=== PATIENT | female | born 1960 | race African-American/Black ===

== ENCOUNTER 2020-07-27 17:41 | Emergency (ER) | payer MEDICAID ==
[~2020-07-27] VITALS: Ht 172.7 cm; Wt 82.0 kg
[2020-07-27 19:14] LABS: BASOPHILS % 0.7 % (0.0-2.0); EOSINOPHILS % 1.8 % (0.0-5.0); HEMATOCRIT. 38.4 % (36.0-48.0); HEMOGLOBIN. 13.6 g/dL (12.0-16.0); LYMPHOCYTES % 39.4 % (20.0-50.0); MEAN CORPUSCULAR HEMOGLOBIN 29.9 pg (28.0-32.0); MEAN CORPUSCULAR VOLUME 84.6 fL (81.0-99.0); MEAN PLATELET VOLUME 7.8 fl (7.4-10.4); MONOCYTES % 8.4 % (2.0-8.0); NEUTROPHILS % 49.7 % (40.0-76.0); PLATELET 301 x1000/uL (130-400); RED BLOOD CELL COUNT 4.54 mill/uL (4.2-5.4); RED CELL DISTRIBUTION WIDTH 13.7 % (11.6-14.6)
[2020-07-27 19:16] LABS: CHLORIDE 108 mEq/L (98-107)
[2020-07-27 19:18] LABS: PROTHROMBIN TIME 11.2 sec (9.6-11.0)
[2020-07-27 22:00] VITALS: BP 110/68
== END 2020-07-28 01:00 | disposition home or self-care (01) ==
LOC: ER 17:41
DX: R06.00 Dyspnea, unspecified (principal); I69.351 Hemiplegia and hemiparesis following cerebral infarction affecting right dominant side; I69.322 Dysarthria following cerebral infarction; Y08.89XA Assault by other specified means, initial encounter; Y07.59 Other non-family member, perpetrator of maltreatment and neglect; F03.90 Unspecified dementia, unspecified severity, without behavioral disturbance, psychotic disturbance, mood disturbance, and anxiety; I50.9 Heart failure, unspecified; Y93.89 Activity, other specified; Y92.238 Other place in hospital as the place of occurrence of the external cause; Z99.81 Dependence on supplemental oxygen
CPT/HCPCS: 36415; 71045; 80053; 83605; 83880; 84484; 85025; 85610; 93005; 99285; Z7610

== ENCOUNTER 2021-07-25 13:56 | Emergency (ER) | payer MEDICAID ==
[~2021-07-25] VITALS: Ht 170.2 cm; Wt 59.0 kg
[2021-07-25] MEDS ORDERED: DIATR MEGLU/DIATRIZOATE SOLN 30ML ONE (16:03)
[2021-07-25 20:51] VITALS: BP 101/53
== END 2021-07-25 20:57 ==
LOC: ER 14:04
DX: Z43.1 Encounter for attention to gastrostomy (principal); R00.0 Tachycardia, unspecified; I11.0 Hypertensive heart disease with heart failure; I50.9 Heart failure, unspecified; I69.320 Aphasia following cerebral infarction; I69.398 Other sequelae of cerebral infarction; Z74.01 Bed confinement status
CPT/HCPCS: 43762; 74018; 99285; Z7610; Q9963

== ENCOUNTER 2021-07-30 20:11 | Inpatient (IN) | payer MEDICAID ==
[~2021-07-30] VITALS: Ht 170.2 cm; Wt 57.2 kg
[2021-07-30 20:55] LABS: EOSINOPHILS % 0.4 % (0.0-5.0); LYMPHOCYTES % 11.5 % (20.0-50.0); MEAN CORPUSCULAR HEMOGLOBIN 22.5 pg (28.0-32.0); MEAN CORPUSCULAR VOLUME 74.8 fL (81.0-99.0); MEAN PLATELET VOLUME 5.9 fl (7.4-10.4); MONOCYTES % 5.5 % (2.0-8.0); NEUTROPHILS % 82.6 % (40.0-76.0); PLATELET 477 x1000/uL (130-400); RED BLOOD CELL COUNT 3.05 mill/uL (4.2-5.4); RED CELL DISTRIBUTION WIDTH 18.8 % (11.6-14.6)
[2021-07-30 20:57] LABS: CHLORIDE 99 mEq/L (98-107)
[2021-07-30 20:59] LABS: INR 1.1; PROTHROMBIN TIME 11.4 sec (9.6-11.0)
[2021-07-30 21:00] LABS: HEMOGLOBIN. 6.9 g/dL (12.0-16.0)
[2021-07-30 21:01] LABS: HEMATOCRIT. 22.8 % (36.0-48.0)
[2021-07-30] MEDS ORDERED: DIATR MEGLU/DIATRIZOATE SOLN 30ML ONE (21:41)
[2021-07-30 23:32] LABS: HEMATOCRIT. 24.2 % (36.0-48.0); HEMOGLOBIN. 7.5 g/dL (12.0-16.0); MEAN CORPUSCULAR HEMOGLOBIN 22.9 pg (28.0-32.0); MEAN PLATELET VOLUME 6.3 fl (7.4-10.4); PLATELET 496 x1000/uL (130-400); RED BLOOD CELL COUNT 3.27 mill/uL (4.2-5.4); RED CELL DISTRIBUTION WIDTH 18.9 % (11.6-14.6)
[2021-07-30 23:43] LABS: INR 1.1; PROTHROMBIN TIME 11.6 sec (9.6-11.0)
[2021-07-31] MEDS: DEXT 5%/0.45% NACL 1000ML 1,000 ML IV SCH (01:00)
[2021-07-31 05:45] VITALS: BP 104/82
[2021-07-31 05:47] LABS: PLATELET ESTIMATE INCREASED
[2021-07-31] MEDS ORDERED: CEFTRIAXONE 1 G PREMIX 50 ML IV SCH (06:45)
[2021-07-31 08:00] VITALS: BP 92/63
[2021-07-31] MEDS: DEXT 5%/0.45% NACL KCL 20MEQ/L 1,000 ML IV SCH ×2 (11:35→18:15)
[2021-07-31] MEDS: CEFTRIAXONE 1,000 MG in DEXTROSE 5% WATER 50 ML IV SCH (11:36)
[2021-07-31 11:55] LABS: BASOPHILS % 0.1 % (0.0-2.0); EOSINOPHILS % 0.1 % (0.0-5.0); HEMATOCRIT. 29.9 % (36.0-48.0); HEMOGLOBIN. 8.5 g/dL (12.0-16.0); MEAN CORPUSCULAR HEMOGLOBIN 22.8 pg (28.0-32.0); MEAN CORPUSCULAR VOLUME 80.6 fL (81.0-99.0); MEAN PLATELET VOLUME 6.9 fl (7.4-10.4); MONOCYTES % 5.5 % (2.0-8.0); NEUTROPHILS % 84.3 % (40.0-76.0); PLATELET 162 x1000/uL (130-400); RED BLOOD CELL COUNT 3.71 mill/uL (4.2-5.4); RED CELL DISTRIBUTION WIDTH 19.8 % (11.6-14.6)
[2021-07-31 12:00] VITALS: BP 96/70
[2021-07-31 16:00] VITALS: BP 97/66
[2021-07-31] MEDS ORDERED: CLONIDINE 0.1MG TABLET PO PRN (16:30)
[2021-07-31] MEDS ORDERED: ONDANSETRON HCL 4MG/2ML INJ IV PRN (16:30)
[2021-07-31] MEDS ORDERED: MAGNESIUM/ALUMINUM HYDROXIDE/SIMETHICONE 30ML UDC PO PRN (16:30)
[2021-07-31] MEDS ORDERED: HYDROCODONE/ACETAMINOPHEN 5/325MG TABLET PO PRN (16:30)
[2021-07-31 20:00] VITALS: BP 100/67
[2021-08-01] VITALS (11 sets, daily range): BP systolic 89–126; BP diastolic 54–78
[2021-08-01] MEDS: DEXT 5%/0.45% NACL 1000ML 1,000 ML IV SCH (02:00)
[2021-08-01] MEDS: CEFTRIAXONE 1,000 MG in DEXTROSE 5% WATER 50 ML IV SCH (09:15)
[2021-08-01] MEDS: DEXT 5%/0.45% NACL KCL 20MEQ/L 1,000 ML IV SCH ×2 (09:15→23:35)
[2021-08-01 12:20] LABS: BASOPHILS % 0.4 % (0.0-2.0); CHLORIDE 100 mEq/L (98-107); EOSINOPHILS % 0.2 % (0.0-5.0); HEMATOCRIT. 21.7 % (36.0-48.0); MEAN CORPUSCULAR HEMOGLOBIN 22.9 pg (28.0-32.0); MEAN CORPUSCULAR VOLUME 73.1 fL (81.0-99.0); MEAN PLATELET VOLUME 6.6 fl (7.4-10.4); MONOCYTES % 5.2 % (2.0-8.0); NEUTROPHILS % 86.2 % (40.0-76.0); PLATELET 514 x1000/uL (130-400); RED BLOOD CELL COUNT 2.97 mill/uL (4.2-5.4); RED CELL DISTRIBUTION WIDTH 18.7 % (11.6-14.6)
[2021-08-01 12:33] LABS: HEMOGLOBIN. 6.8 g/dL (12.0-16.0)
[2021-08-01 12:42] LABS: PHOSPHORUS 3.2 mg/dL (2.5-4.9); TOTAL IRON BINDING CAPACITY 101 ug/dL (250-450)
[2021-08-01 12:45] LABS: FOLIC ACID (FOLATE) SERUM 5.6 ng/mL (>5.38)
[2021-08-01] MEDS: PANTOPRAZOLE SODIUM 40 MG/VIAL IV SCH (18:55)
[2021-08-01] MEDS ORDERED: ENOXAPARIN 40MG/0.4ML SYR SUBCUT SCH (21:00)
[2021-08-02] VITALS (10 sets, daily range): BP systolic 101–120; BP diastolic 70–90
[2021-08-02] MEDS: DEXT 5%/0.45% NACL 1000ML 1,000 ML IV SCH ×2 (01:50→11:51)
[2021-08-02 06:29] LABS: BASOPHILS % 0.1 % (0.0-2.0); EOSINOPHILS % 0.2 % (0.0-5.0); HEMATOCRIT. 36.6 % (36.0-48.0); HEMOGLOBIN. 11.7 g/dL (12.0-16.0); LYMPHOCYTES % 10.8 % (20.0-50.0); MEAN CORPUSCULAR HEMOGLOBIN 25.7 pg (28.0-32.0); MEAN CORPUSCULAR VOLUME 80.8 fL (81.0-99.0); MEAN PLATELET VOLUME 6.4 fl (7.4-10.4); MONOCYTES % 4.7 % (2.0-8.0); NEUTROPHILS % 84.2 % (40.0-76.0); PLATELET 363 x1000/uL (130-400); RED BLOOD CELL COUNT 4.53 mill/uL (4.2-5.4); RED CELL DISTRIBUTION WIDTH 19.8 % (11.6-14.6)
[2021-08-02 07:08] LABS: CHLORIDE 104 mEq/L (98-107)
[2021-08-02] MEDS: PANTOPRAZOLE SODIUM 40 MG/VIAL IV SCH ×2 (09:20→18:10)
[2021-08-02] MEDS: CEFTRIAXONE 1,000 MG in DEXTROSE 5% WATER 50 ML IV SCH (09:20)
[2021-08-02] MEDS: DEXT 5%/0.45% NACL KCL 20MEQ/L 1,000 ML IV SCH (11:16)
[2021-08-02] MEDS: ENOXAPARIN 60MG/0.6ML SYR SUBCUT SCH ×2 (11:51→21:57)
[2021-08-02 16:07] LABS: BASOPHILS % 0.2 % (0.0-2.0); EOSINOPHILS % 0.6 % (0.0-5.0); HEMATOCRIT. 34.4 % (36.0-48.0); HEMOGLOBIN. 11.6 g/dL (12.0-16.0); LYMPHOCYTES % 8.7 % (20.0-50.0); MEAN CORPUSCULAR HEMOGLOBIN 26.1 pg (28.0-32.0); MEAN CORPUSCULAR VOLUME 77.8 fL (81.0-99.0); MONOCYTES % 3.9 % (2.0-8.0); NEUTROPHILS % 86.6 % (40.0-76.0); RED BLOOD CELL COUNT 4.43 mill/uL (4.2-5.4); RED CELL DISTRIBUTION WIDTH 20.2 % (11.6-14.6)
[2021-08-03 04:00] VITALS: BP 107/74
[2021-08-03 07:43] VITALS: BP 121/86
[2021-08-03] MEDS: ENOXAPARIN 60MG/0.6ML SYR SUBCUT SCH ×2 (08:43→20:57)
[2021-08-03] MEDS: PANTOPRAZOLE SODIUM 40 MG/VIAL IV SCH ×2 (08:48→16:49)
[2021-08-03] MEDS: CEFTRIAXONE 1,000 MG in DEXTROSE 5% WATER 50 ML IV SCH (08:49)
[2021-08-03 10:24] LABS: CHLORIDE 104 mEq/L (98-107)
[2021-08-03 10:38] LABS: BASOPHILS % 0.2 % (0.0-2.0); EOSINOPHILS % 0.4 % (0.0-5.0); HEMATOCRIT. 32.6 % (36.0-48.0); HEMOGLOBIN. 10.4 g/dL (12.0-16.0); LYMPHOCYTES % 8.6 % (20.0-50.0); MEAN CORPUSCULAR HEMOGLOBIN 25.5 pg (28.0-32.0); MEAN CORPUSCULAR VOLUME 79.6 fL (81.0-99.0); MEAN PLATELET VOLUME 6.7 fl (7.4-10.4); MONOCYTES % 4.5 % (2.0-8.0); NEUTROPHILS % 86.3 % (40.0-76.0); PLATELET 401 x1000/uL (130-400); RED CELL DISTRIBUTION WIDTH 20.2 % (11.6-14.6)
[2021-08-03] MEDS: DEXT 5%/0.45% NACL 1000ML 1,000 ML IV SCH (10:38)
[2021-08-03 12:00] VITALS: BP 113/54
[2021-08-03] MEDS ORDERED: POTASSIUM CHLORIDE 20MEQ TABLET SR PO NR (13:30)
[2021-08-03 16:00] VITALS: BP 130/86
[2021-08-03 20:00] VITALS: BP 119/84
[2021-08-04] VITALS: BP 114/82
[2021-08-04] MEDS: DEXT 5%/0.45% NACL 1000ML 1,000 ML IV SCH ×2 (03:06→20:43)
[2021-08-04 04:00] VITALS: BP 117/80
[2021-08-04] MEDS: ENOXAPARIN 60MG/0.6ML SYR SUBCUT SCH ×2 (08:23→20:43)
[2021-08-04] MEDS: PANTOPRAZOLE SODIUM 40 MG/VIAL IV SCH ×2 (09:11→17:44)
[2021-08-04] MEDS: CEFTRIAXONE 1,000 MG in DEXTROSE 5% WATER 50 ML IV SCH (09:11)
[2021-08-04 10:17] LABS: BASOPHILS % 0.1 % (0.0-2.0); EOSINOPHILS % 0.3 % (0.0-5.0); HEMATOCRIT. 31.6 % (36.0-48.0); HEMOGLOBIN. 10.1 g/dL (12.0-16.0); MEAN CORPUSCULAR HEMOGLOBIN 25.1 pg (28.0-32.0); MEAN CORPUSCULAR VOLUME 78.4 fL (81.0-99.0); MEAN PLATELET VOLUME 6.1 fl (7.4-10.4); MONOCYTES % 4.2 % (2.0-8.0); NEUTROPHILS % 87.4 % (40.0-76.0); PLATELET 408 x1000/uL (130-400); RED BLOOD CELL COUNT 4.04 mill/uL (4.2-5.4); RED CELL DISTRIBUTION WIDTH 20.2 % (11.6-14.6)
[2021-08-04 10:36] VITALS: BP 137/86
[2021-08-04 10:39] LABS: CHLORIDE 105 mEq/L (98-107)
[2021-08-04 12:00] VITALS: BP 154/85
[2021-08-04 16:00] VITALS: BP 134/95
[2021-08-04 20:00] VITALS: BP 133/95
[2021-08-05] VITALS (13 sets, daily range): BP systolic 109–147; BP diastolic 70–98
[2021-08-05] MEDS: ENOXAPARIN 60MG/0.6ML SYR SUBCUT SCH ×2 (07:50→21:50)
[2021-08-05] MEDS: PANTOPRAZOLE SODIUM 40 MG/VIAL IV SCH ×2 (09:00→16:38)
[2021-08-05] MEDS ORDERED: IOHEXOL-300 50 ML BOTTLE IV ONE (09:07)
[2021-08-05] MEDS ORDERED: LIDOCAINE HCL/PF 1% 10 MG/ML 5ML VIAL ONE (09:08)
[2021-08-05 11:42] LABS: CHLORIDE 102 mEq/L (98-107)
[2021-08-05 12:04] LABS: HEMOGLOBIN. 11.6 g/dL (12.0-16.0); MEAN CORPUSCULAR HEMOGLOBIN 25.7 pg (28.0-32.0); MEAN CORPUSCULAR VOLUME 77.9 fL (81.0-99.0); MEAN PLATELET VOLUME 6.9 fl (7.4-10.4); PLATELET 359 x1000/uL (130-400); RED BLOOD CELL COUNT 4.49 mill/uL (4.2-5.4); RED CELL DISTRIBUTION WIDTH 20.9 % (11.6-14.6)
[2021-08-05] MEDS ORDERED: LACTULOSE 20G/30ML UDC PO NR (14:00)
[2021-08-05] MEDS: METOCLOPRAMIDE HCL 10MG/2ML VIAL IV SCH (17:48)
[2021-08-05] MEDS: ACETAMINOPHEN 325MG TABLET PO PRN (21:52)
[2021-08-06] VITALS: BP 109/76
[2021-08-06] MEDS: METOCLOPRAMIDE HCL 10MG/2ML VIAL IV SCH ×4 (00:19→17:32)
[2021-08-06 04:00] VITALS: BP 115/74
[2021-08-06] MEDS: DEXT 5%/0.45% NACL 1000ML 1,000 ML IV SCH ×3 (05:18→21:19)
[2021-08-06] MEDS: ACETAMINOPHEN 325MG TABLET PO PRN ×2 (06:06→20:13)
[2021-08-06 07:00] LABS: CHLORIDE 104 mEq/L (98-107)
[2021-08-06 08:00] VITALS: BP 102/69
[2021-08-06] MEDS: PANTOPRAZOLE SODIUM 40 MG/VIAL IV SCH ×2 (09:03→17:32)
[2021-08-06] MEDS: ENOXAPARIN 60MG/0.6ML SYR SUBCUT SCH ×2 (09:40→21:19)
[2021-08-06 10:35] LABS: BASOPHILS % 0.2 % (0.0-2.0); EOSINOPHILS % 0.4 % (0.0-5.0); HEMATOCRIT. 32.9 % (36.0-48.0); HEMOGLOBIN. 10.4 g/dL (12.0-16.0); LYMPHOCYTES % 8.3 % (20.0-50.0); MEAN CORPUSCULAR HEMOGLOBIN 24.7 pg (28.0-32.0); MEAN CORPUSCULAR VOLUME 78.4 fL (81.0-99.0); MONOCYTES % 5.2 % (2.0-8.0); NEUTROPHILS % 85.9 % (40.0-76.0); RED CELL DISTRIBUTION WIDTH 21.2 % (11.6-14.6)
[2021-08-06 12:00] VITALS: BP 97/65
[2021-08-06] MEDS ORDERED: SODIUM POLYSTYRENE SULFONATE 15 G/60 ML BOT PO NR (13:30)
[2021-08-06 16:00] VITALS: BP 106/76
[2021-08-06 20:45] VITALS: BP 107/69
[2021-08-07] VITALS: BP 110/76
[2021-08-07] MEDS: METOCLOPRAMIDE HCL 10MG/2ML VIAL IV SCH ×4 (00:48→17:57)
[2021-08-07] MEDS: DEXT 5%/0.45% NACL 1000ML 1,000 ML IV SCH (02:18)
[2021-08-07 04:00] VITALS: BP 91/65
[2021-08-07 07:03] LABS: CHLORIDE 105 mEq/L (98-107)
[2021-08-07 07:05] LABS: HEMATOCRIT. 30.7 % (36.0-48.0); HEMOGLOBIN. 9.7 g/dL (12.0-16.0); MEAN PLATELET VOLUME 6.3 fl (7.4-10.4); PLATELET 260 x1000/uL (130-400); RED BLOOD CELL COUNT 3.89 mill/uL (4.2-5.4); RED CELL DISTRIBUTION WIDTH 20.8 % (11.6-14.6)
[2021-08-07] MEDS ORDERED: POTASSIUM CHLORIDE INJ 40 MEQ in DEXT 5% WATER 250 ML IV ONE ×2 (07:45→09:15)
[2021-08-07 08:00] VITALS: BP 119/90
[2021-08-07] MEDS: PANTOPRAZOLE SODIUM 40 MG/VIAL IV SCH ×2 (08:30→17:56)
[2021-08-07] MEDS: ENOXAPARIN 60MG/0.6ML SYR SUBCUT SCH (08:30)
[2021-08-07 10:16] LABS: PLATELET ESTIMATE NORMAL
[2021-08-07] MEDS: KCL 20MEQ/100ML X 2 FOR TOTAL KCL 40MEQ/200ML IV SCH ×2 (11:26→14:05)
[2021-08-07 12:00] VITALS: BP 128/80
[2021-08-07] MEDS ORDERED: METO-293 MT (13:25)
[2021-08-07 16:00] VITALS: BP 125/90
[2021-08-07] MEDS ORDERED: KCL 20MEQ/100ML PREMIX 100 ML IV NR (17:00)
[2021-08-07 20:00] VITALS: BP 139/76
[2021-08-08] VITALS: BP 121/75
[2021-08-08] MEDS: METOCLOPRAMIDE HCL 10MG/2ML VIAL IV SCH ×5 (00:54→23:58)
[2021-08-08 04:00] VITALS: BP 91/55
[2021-08-08 07:54] LABS: HEMATOCRIT. 27.9 % (36.0-48.0); HEMOGLOBIN. 8.9 g/dL (12.0-16.0); MEAN CORPUSCULAR HEMOGLOBIN 25.3 pg (28.0-32.0); MEAN CORPUSCULAR VOLUME 78.9 fL (81.0-99.0); MEAN PLATELET VOLUME 6.3 fl (7.4-10.4); PLATELET 248 x1000/uL (130-400); RED BLOOD CELL COUNT 3.53 mill/uL (4.2-5.4); RED CELL DISTRIBUTION WIDTH 21.1 % (11.6-14.6)
[2021-08-08 08:00] VITALS: BP 94/64
[2021-08-08 08:11] LABS: CHLORIDE 106 mEq/L (98-107)
[2021-08-08] MEDS: PANTOPRAZOLE SODIUM 40 MG/VIAL IV SCH ×2 (08:13→18:19)
[2021-08-08 12:41] VITALS: BP 107/65
[2021-08-08 14:40] LABS: PLATELET ESTIMATE NORMAL
[2021-08-08 16:00] VITALS: BP 101/61
[2021-08-08 20:00] VITALS: BP 97/56
[2021-08-08] MEDS: DEXT 5%/0.45% NACL 1000ML 1,000 ML IV SCH (21:42)
[2021-08-09] VITALS (7 sets, daily range): BP systolic 102–121; BP diastolic 56–103
[2021-08-09] MEDS: DEXT 5%/0.45% NACL 1000ML 1,000 ML IV SCH ×2 (00:30→18:03)
[2021-08-09] MEDS: METOCLOPRAMIDE HCL 10MG/2ML VIAL IV SCH ×4 (05:35→23:46)
[2021-08-09 06:52] LABS: HEMOGLOBIN. 10.8 g/dL (12.0-16.0); MEAN CORPUSCULAR VOLUME 78.4 fL (81.0-99.0); MEAN PLATELET VOLUME 6.8 fl (7.4-10.4); PLATELET 223 x1000/uL (130-400); RED BLOOD CELL COUNT 4.34 mill/uL (4.2-5.4); RED CELL DISTRIBUTION WIDTH 21.7 % (11.6-14.6)
[2021-08-09 07:02] LABS: CHLORIDE 103 mEq/L (98-107)
[2021-08-09] MEDS: PANTOPRAZOLE SODIUM 40 MG/VIAL IV SCH ×2 (08:57→18:03)
[2021-08-09 09:22] LABS: PLATELET ESTIMATE NORMAL
[2021-08-10 04:00] VITALS: BP 103/67
[2021-08-10 05:41] LABS: HEMATOCRIT. 27.5 % (36.0-48.0); HEMOGLOBIN. 8.8 g/dL (12.0-16.0); MEAN CORPUSCULAR HEMOGLOBIN 25.2 pg (28.0-32.0); MEAN CORPUSCULAR VOLUME 78.6 fL (81.0-99.0); MEAN PLATELET VOLUME 6.9 fl (7.4-10.4); PLATELET 242 x1000/uL (130-400); RED CELL DISTRIBUTION WIDTH 21.4 % (11.6-14.6)
[2021-08-10 06:02] LABS: CHLORIDE 102 mEq/L (98-107)
[2021-08-10] MEDS: METOCLOPRAMIDE HCL 10MG/2ML VIAL IV SCH ×3 (06:20→17:12)
[2021-08-10 08:00] VITALS: BP 107/70
[2021-08-10 08:42] LABS: PLATELET ESTIMATE NORMAL
[2021-08-10] MEDS: PANTOPRAZOLE SODIUM 40 MG/VIAL IV SCH ×2 (09:02→17:12)
[2021-08-10] MEDS: DEXT 5%/0.45% NACL 1000ML 1,000 ML IV SCH (09:11)
[2021-08-10 12:00] VITALS: BP 111/75
[2021-08-10 16:00] VITALS: BP 96/69
[2021-08-10 20:00] VITALS: BP 116/78
[2021-08-11] VITALS (7 sets, daily range): BP systolic 97–115; BP diastolic 59–77
[2021-08-11] MEDS: METOCLOPRAMIDE HCL 10MG/2ML VIAL IV SCH ×5 (00:41→23:44)
[2021-08-11] MEDS: DEXT 5%/0.45% NACL 1000ML 1,000 ML IV SCH (02:37)
[2021-08-11 08:06] LABS: HEMATOCRIT. 28.5 % (36.0-48.0); HEMOGLOBIN. 8.9 g/dL (12.0-16.0); MEAN CORPUSCULAR HEMOGLOBIN 25.1 pg (28.0-32.0); MEAN CORPUSCULAR VOLUME 80.3 fL (81.0-99.0); MEAN PLATELET VOLUME 7.1 fl (7.4-10.4); PLATELET 245 x1000/uL (130-400); RED BLOOD CELL COUNT 3.56 mill/uL (4.2-5.4); RED CELL DISTRIBUTION WIDTH 21.2 % (11.6-14.6)
[2021-08-11] MEDS: PANTOPRAZOLE SODIUM 40 MG/VIAL IV SCH ×2 (08:20→16:29)
[2021-08-11 08:23] LABS: CHLORIDE 102 mEq/L (98-107)
[2021-08-11 11:41] LABS: PLATELET ESTIMATE NORMAL
[2021-08-11] MEDS ORDERED: FUROSEMIDE 40MG/4ML VIAL IVP NR (20:50)
[2021-08-11] MEDS: ACETAMINOPHEN 325MG TABLET PO PRN (23:56)
[2021-08-12 03:56] VITALS: BP 95/66
[2021-08-12] MEDS: METOCLOPRAMIDE HCL 10MG/2ML VIAL IV SCH ×3 (05:53→18:17)
[2021-08-12 06:36] LABS: HEMATOCRIT. 27.7 % (36.0-48.0); HEMOGLOBIN. 8.6 g/dL (12.0-16.0); MEAN CORPUSCULAR HEMOGLOBIN 24.7 pg (28.0-32.0); MEAN CORPUSCULAR VOLUME 79.3 fL (81.0-99.0); MEAN PLATELET VOLUME 7.4 fl (7.4-10.4); PLATELET 309 x1000/uL (130-400); RED BLOOD CELL COUNT 3.49 mill/uL (4.2-5.4); RED CELL DISTRIBUTION WIDTH 21.5 % (11.6-14.6)
[2021-08-12 07:22] LABS: CHLORIDE 102 mEq/L (98-107)
[2021-08-12 07:53] VITALS: BP 90/62
[2021-08-12] MEDS: ACETAMINOPHEN 325MG TABLET PO PRN (08:27)
[2021-08-12] MEDS: PANTOPRAZOLE SODIUM 40 MG/VIAL IV SCH ×2 (08:27→18:17)
[2021-08-12 12:00] VITALS: BP 90/64
[2021-08-12 16:00] VITALS: BP 94/67
[2021-08-12 17:30] LABS: PLATELET ESTIMATE NORMAL
[2021-08-12 20:00] VITALS: BP 96/68
[2021-08-13] VITALS (7 sets, daily range): BP systolic 87–127; BP diastolic 57–86
[2021-08-13] MEDS: METOCLOPRAMIDE HCL 10MG/2ML VIAL IV SCH ×5 (00:54→22:20)
[2021-08-13] MEDS ORDERED: AMLO10TA4 MT (06:12)
[2021-08-13] MEDS ORDERED: ASPI-1497 MT (06:12)
[2021-08-13 07:27] LABS: HEMATOCRIT. 26.8 % (36.0-48.0); HEMOGLOBIN. 8.7 g/dL (12.0-16.0); MEAN CORPUSCULAR HEMOGLOBIN 25.3 pg (28.0-32.0); MEAN CORPUSCULAR VOLUME 78.1 fL (81.0-99.0); MEAN PLATELET VOLUME 6.6 fl (7.4-10.4); PLATELET 330 x1000/uL (130-400); RED BLOOD CELL COUNT 3.43 mill/uL (4.2-5.4); RED CELL DISTRIBUTION WIDTH 21.9 % (11.6-14.6)
[2021-08-13 07:38] LABS: CHLORIDE 103 mEq/L (98-107)
[2021-08-13] MEDS: PANTOPRAZOLE SODIUM 40 MG/VIAL IV SCH ×2 (09:36→17:24)
[2021-08-13] MEDS ORDERED: HYDROCODONE/ACETAMINOPHEN 5/325MG TABLET PO PRN (12:30)
[2021-08-13] MEDS ORDERED: NALOXONE HCL 0.4MG/ML VIAL IV PRN (12:30)
[2021-08-13] MEDS: CEFTRIAXONE 1,000 MG in DEXTROSE 5% WATER 50 ML IV SCH (15:02)
[2021-08-13] MEDS ORDERED: POLYETHYLENE GLYCOL 3350 (17GM) 1 DOSE PACK PO PRN (15:15)
[2021-08-13 15:21] LABS: PLATELET ESTIMATE NORMAL
[2021-08-13] MEDS: SODIUM CHLORIDE 0.9% 1,000 ML IV SCH (16:11)
[2021-08-13] MEDS ORDERED: SODIUM CHLORIDE 0.9% 500 ML IV SCH (16:45)
[2021-08-13] MEDS ORDERED: LACTULOSE 20G/30ML UDC GT NR (19:15)
[2021-08-13] MEDS: DOCUSATE SODIUM SUGAR FREE 100MG/10ML UDC NG SCH (22:02)
[2021-08-14 04:00] VITALS: BP 101/63
[2021-08-14] MEDS: SODIUM CHLORIDE 0.9% 1,000 ML IV SCH (05:20)
[2021-08-14] MEDS: METOCLOPRAMIDE HCL 10MG/2ML VIAL IV SCH ×4 (06:31→23:35)
[2021-08-14 07:00] LABS: HEMATOCRIT. 25.5 % (36.0-48.0); HEMOGLOBIN. 8.1 g/dL (12.0-16.0); MEAN CORPUSCULAR VOLUME 79.1 fL (81.0-99.0); MEAN PLATELET VOLUME 6.6 fl (7.4-10.4); PLATELET 333 x1000/uL (130-400); RED BLOOD CELL COUNT 3.23 mill/uL (4.2-5.4); RED CELL DISTRIBUTION WIDTH 21.4 % (11.6-14.6)
[2021-08-14 07:03] LABS: CHLORIDE 105 mEq/L (98-107)
[2021-08-14 08:00] VITALS: BP 101/60
[2021-08-14 08:12] LABS: CA 27.29 21.1 U/mL (0.0-38.6); CANCER ANTIGEN 125 67.3 U/mL (0.0-38.1)
[2021-08-14] MEDS: DOCUSATE SODIUM SUGAR FREE 100MG/10ML UDC NG SCH (08:33)
[2021-08-14] MEDS: PANTOPRAZOLE SODIUM 40 MG/VIAL IV SCH ×2 (08:33→17:11)
[2021-08-14 10:45] LABS: PLATELET ESTIMATE NORMAL
[2021-08-14 12:00] VITALS: BP 101/62
[2021-08-14] MEDS: CEFTRIAXONE 1,000 MG in DEXTROSE 5% WATER 50 ML IV SCH (14:18)
[2021-08-14 15:44] VITALS: BP 108/79
[2021-08-14] MEDS ORDERED: SODIUM CHLORIDE 0.9% 500 ML IV ONE (17:30)
[2021-08-14 20:00] VITALS: BP 96/63
[2021-08-15] VITALS: BP 94/66
[2021-08-15 04:00] VITALS: BP 94/61
[2021-08-15] MEDS: METOCLOPRAMIDE HCL 10MG/2ML VIAL IV SCH ×3 (05:41→17:44)
[2021-08-15 06:49] LABS: HEMATOCRIT. 24.6 % (36.0-48.0); HEMOGLOBIN. 7.7 g/dL (12.0-16.0); MEAN CORPUSCULAR HEMOGLOBIN 24.7 pg (28.0-32.0); MEAN PLATELET VOLUME 6.6 fl (7.4-10.4); PLATELET 337 x1000/uL (130-400); RED BLOOD CELL COUNT 3.12 mill/uL (4.2-5.4); RED CELL DISTRIBUTION WIDTH 21.8 % (11.6-14.6)
[2021-08-15 07:11] LABS: CHLORIDE 107 mEq/L (98-107)
[2021-08-15 07:37] VITALS: BP 88/56
[2021-08-15] MEDS ORDERED: SODIUM CHLORIDE 0.9% 500 ML IV SCH (08:00)
[2021-08-15] MEDS: PANTOPRAZOLE SODIUM 40 MG/VIAL IV SCH ×2 (08:19→17:00)
[2021-08-15] MEDS: DOCUSATE SODIUM SUGAR FREE 100MG/10ML UDC NG SCH ×2 (08:23→09:00)
[2021-08-15] MEDS ORDERED: SORBITOL 70% SOLN 30ML GT NR (11:15)
[2021-08-15] MEDS ORDERED: BISACODYL 10MG SUPP PR NR (11:30)
[2021-08-15 12:19] VITALS: BP 86/51
[2021-08-15] MEDS: CEFTRIAXONE 1,000 MG in DEXTROSE 5% WATER 50 ML IV SCH (13:00)
[2021-08-15 14:24] LABS: PLATELET ESTIMATE NORMAL
[2021-08-15 15:30] VITALS: BP 95/63
== END 2021-08-15 17:30 | disposition hospice, home (50) | DRG 951 ==
LOC: ER 20:11 → MICUSO 07-31 01:14 → EDBEDREQ 07-31 01:21 → 6WST 07-31 02:44
PROVIDERS: ADMIT Internal Medicine; ATTEND Internal Medicine
PROC: 30233N1 Transfusion of Nonautologous Red Blood Cells into Peripheral Vein, Percutaneous Approach (ICD-10-PCS; 2021-08-01)
PROC: 0KBP0ZZ Excision of Left Hip Muscle, Open Approach (ICD-10-PCS; principal; 2021-08-02)
PROC: 0KBN0ZZ Excision of Right Hip Muscle, Open Approach (ICD-10-PCS; 2021-08-02)
PROC: 06H03DZ Insertion of Intraluminal Device into Inferior Vena Cava, Percutaneous Approach (ICD-10-PCS; 2021-08-05)
PROC: B519ZZA Fluoroscopy of Inferior Vena Cava, Guidance (ICD-10-PCS; 2021-08-05)
PROC: 02HV33Z Insertion of Infusion Device into Superior Vena Cava, Percutaneous Approach (ICD-10-PCS; 2021-08-05)
PROC: B518ZZA Fluoroscopy of Superior Vena Cava, Guidance (ICD-10-PCS; 2021-08-05)
PROC: 0KBP0ZZ Excision of Left Hip Muscle, Open Approach (ICD-10-PCS; 2021-08-13)
PROC: 0KBN0ZZ Excision of Right Hip Muscle, Open Approach (ICD-10-PCS; 2021-08-13)
DX: K92.2 Gastrointestinal hemorrhage, unspecified (principal); E43 Unspecified severe protein-calorie malnutrition; L89.210 Pressure ulcer of right hip, unstageable; L89.154 Pressure ulcer of sacral region, stage 4; I82.401 Acute embolism and thrombosis of unspecified deep veins of right lower extremity; K94.23 Gastrostomy malfunction; R56.9 Unspecified convulsions; N13.30 Unspecified hydronephrosis; F03.90 Unspecified dementia, unspecified severity, without behavioral disturbance, psychotic disturbance, mood disturbance, and anxiety; D50.9 Iron deficiency anemia, unspecified; D72.829 Elevated white blood cell count, unspecified; R13.12 Dysphagia, oropharyngeal phase; Z20.822 Contact with and (suspected) exposure to COVID-19; E87.5 Hyperkalemia; E87.6 Hypokalemia; Z87.891 Personal history of nicotine dependence; Z86.73 Personal history of transient ischemic attack (TIA), and cerebral infarction without residual deficits; Z74.01 Bed confinement status; Z68.1 Body mass index [BMI] 19.9 or less, adult; Z86.718 Personal history of other venous thrombosis and embolism
CPT/HCPCS: 36415; 36573; 37191; 71045; 74018; 74176; 80048; 80053; 80076; 82040; 82270; 82378; 82607; 82728; 82746; 83540; 83550; 83735; 84100; 84132; 84134; 84145; 85018; 85025; 85044; 86300; 86301; 86304; 86850; 86900; 86920; 87426; 93970; 99285; C1725; C1769; C1880; C9113; J0696; J1644; J1650; J1940; J2765; J3480; J3490; J7030; J7060; P9016; Q9963; Q9967; A4315